=== PATIENT | female | born 1935 | race African-American/Black ===

== ENCOUNTER 2020-11-21 16:11 | Emergency (ER) | payer OTHER ==
--- NOTE | 2020-11-21 16:55 | RAD REPORT ---
EXAM DESCRIPTION: Carlos Single View11/21/2020 4:39 pm CLINICAL HISTORY: Cough COMPARISON: none FINDINGS: Mild bilateral pulmonary opacities. Heart is mildly enlarged. IMPRESSION: Mild bilateral pulmonary opacities represent pulmonary edema or pneumonia
[2020-11-21] MEDS ORDERED: CEFTRIAXONE/SWI 1gm 1 GM/10 ML SYR ONE (16:58)
[2020-11-21] MEDS ORDERED: ACETAMINOPHEN 325 MG TABLET ONE (16:58)
[2020-11-21 17:03] LABS: Basophils % 0.3 % (0-1.3); Hematocrit 40.5 % (36.0-45.0); Lymphocytes % 28.5 % (15.3-44.8); MPV 9.9 fL (7.6-11.3); RBC Red Blood Cell Count 4.63 M/uL (3.86-4.86)
[2020-11-21] MEDS ORDERED: NA CHLORIDE 0.9% 500 ML ONE (17:06)
[2020-11-21] MEDS ORDERED: dexAMETHasone 10 MG/ML VIAL ONE (17:06)
[2020-11-21 17:28] LABS: Albumin 3.1 g/dL (3.4-5.0); Bilirubin Direct 0.2 mg/dL (0-0.2); Bilirubin Total 0.4 mg/dL (0.2-1.0); Magnesium 1.9 mg/dL (1.8-2.4); Potassium 3.9 mmol/L (3.5-5.1); Protein, Total 8.1 g/dL (6.4-8.2); Troponin (Emerg Dept Use Only) 0.03 ng/mL (0.0-0.045)
--- NOTE | 2020-11-21 18:33 | RAD REPORT ---
EXAM DESCRIPTION: CT - Chest For Pe Angio - 11/21/2020 6:08 pm CLINICAL HISTORY: Shortness of breath COMPARISON: November 21, 2020 chest x-ray TECHNIQUE: Dynamically enhanced axial 3 mm thick images of the chest were obtained during administra tion of <100> mL Isovue 370 IV contrast. Coronal and oblique reconstruction images were generated and reviewed. Exam utilizes a protocol for optimal evaluation of pulmonary arterial tree. Maximum intensity projections 3D imaging was utilized All CT scans are performed using dose optimization technique as appropriate and may include automated exposure control or mA/KV adjustment according to patient size. FINDINGS: A pulmonary embolus is not seen. A thoracic aortic aneurysm is not noted. A pleural effusion is not seen. A pericardial effusion is not seen. Mild to moderate ground-glass opacities lower lobes IMPRESSION: Negative for a pulmonary embolism. Mild to moderate ground-glass opacity lower lobes of the lungs can be seen with Covid pneumonia
[2020-11-21] MEDS ORDERED: CASIRIVIMAB/IMDEVIMAB 10 ML VIAL ONE (20:43)
[2020-11-21] MEDS ORDERED: NA CHLORIDE 0.9% 50 ML ONE (20:45)
[2020-11-21] MEDS ORDERED: NA CHLORIDE 0.9% 250 ML ONE (20:45)
--- NOTE | 2020-11-21 21:16 | EDPHYS ---
Physician Documentation [facility] Name: Kaylyn Doty Age: 85 yrs Sex: Female : 1935 Arrival Date: 11/21/2020 Time: 16:14 Bed 6 Private MD: ED Physician Arturo Schuster HPI: 11/21 16:47 This 85 yrs old Black Female presents to ER via EMS with complaints of SOB, Fever. jmm 16:47 The patient or guardian reports cough. Onset: The symptoms/episode began/occurred jmm gradually, 1 week(s) ago. Modifying factors: The symptoms are alleviated by nothing. the symptoms are aggravated by nothing. Associated signs and symptoms: Pertinent positives: fever. An 85-year-old female with no chronic medical disease presents emerge department with complaints of cough, shortness of breath beginning approximately 1 week ago. Patient was positive for coronavirus. . Historical: - Allergies: 16:20 No Known Allergies; aa5 - Home Meds: 16:20 None [Active]; aa5 - PMHx: 16:20 Arthritis; aa5 - Immunization history:: Client reports having NOT received the Covid vaccine. Flu vaccine is not up to date. - Social history:: Smoking status: Patient denies any tobacco usage or history of. ROS: 16:47 Constitutional: Positive for body aches, fever. jmm 16:47 Respiratory: Positive for cough, shortness of breath. 16:47 All other systems are negative. Exam: 16:47 Constitutional: This is a well developed, well nourished patient who is awake, alert, jmm and in no acute distress. Head/Face: atraumatic. Eyes: EOMI, no conjunctival erythema appreciated ENT: Moist Mucus Membranes Neck: Trachea midline, Supple Chest/axilla: Normal chest wall appearance and motion. 16:47 Respiratory: Normal respirations, no respiratory distress appreciated Abdomen/GI: Non distended, soft Back: Normal ROM Skin: General appearance color normal MS/ Extremity: Moves all extremities, no obvious deformities appreciated, no edema noted to the lower extremities Neuro: Awake and alert, normal gait Psych: Behavior is normal, Mood is normal, Patient is cooperative and pleasant 16:47 Cardiovascular: Rate: tachycardic, Rhythm: regular. Vital Signs: 16:19 BP 136 / 91; Pulse 136; Resp 32; Temp 101; Pulse Ox 91% on R/A; Pain 5/10; hb 17:30 BP 123 / 70; Pulse 119; Resp 22 S; Temp 100.9(TE); Pulse Ox 97% on 2 lpm NC; aa5 18:30 BP 121 / 73; Pulse 112; Resp 22; Temp 99.3(O); Pulse Ox 100% on 2 lpm NC; aa5 21:34 BP 118 / 74; Pulse 18; Resp 18; Temp 98.4; Pulse Ox 98% on R/A; Pain 0/10; ms4 MDM: 16:28 Patient medically screened. abi 21:14 Data reviewed: vital signs, nurses notes. Counseling: I had a detailed discussion with brittaney the patient and/or guardian regarding: the historical points, exam findings, and any diagnostic results supporting the discharge/admit diagnosis, lab results, radiology results, the need for outpatient follow up, to return to the emergency department if symptoms worsen or persist or if there are any questions or concerns that arise at home. ED course: Patient states feeling much better. Oxygen saturation is 98 to 100% now without oxygen. Patient was given the opportunity to take monoclonal antibodies and declined. Patient and family were otherwise given strict return precautions. They understand and agree with care.. 11/21 16:19 Order name: Basic Metabolic Panel; Complete Time: 17:34 hb 11/21 16:19 Order name: CBC with Diff; Complete Time: 17:21 hb 11/21 16:19 Order name: LFT's; Complete Time: 17:34 hb 11/21 16:19 Order name: Magnesium; Complete Time: 17:34 hb 11/21 16:19 Order name: NT PRO-BNP; Complete Time: 17:34 hb 11/21 16:19 Order name: PT-INR; Complete Time: 17:24 hb 11/21 16:19 Order name: Troponin (emerg Dept Use Only); Complete Time: 17:34 hb 11/21 16:19 Order name: Lactate; Complete Time: 21:26 hb 11/21 16:19 Order name: Blood Culture Adult (2) hb 11/21 16:30 Order name: Glucose, Ancillary Testing; Complete Time: 16:34 EDMS 11/21 18:40 Order name: SARS-COV-2 RT PCR; Complete Time: 18:47 EDMS 11/21 19:22 Order name: CRP; Complete Time: 20:05 vt1 11/21 16:19 Order name: XRAY Chest (1 view); Complete Time: 16:57 11/21 16:19 Order name: EKG; Complete Time: 16:20 11/21 16:19 Order name: Cardiac monitoring; Complete Time: 16:19 11/21 16:19 Order name: EKG - Nurse/Tech; Complete Time: 16:19 11/21 16:19 Order name: IV Saline Lock; Complete Time: 16:21 11/21 16:19 Order name: Labs collected and sent; Complete Time: 16:26 11/21 16:19 Order name: O2 Per Protocol; Complete Time: 16:19 11/21 16:19 Order name: O2 Sat Monitoring; Complete Time: 16:19 11/21 17:34 Order name: CT Chest For PE Angio; Complete Time: 18:47 [facility] 11/21 19:22 Order name: Procalcitonin; Complete Time: 20:30 [facility] 11/21 19:53 Order name: Vital Signs; Complete Time: 21:35 [facility] Administered Medications: 16:35 Drug: Rocephin (cefTRIAXone) 1 grams Route: IV; Rate: calculated rate; Site: right aa5 forearm; 16:35 Drug: Tylenol 650 mg Route: PO; aa5 16:46 Drug: Decadron - Dexamethasone 10 mg Route: IVP; Site: right forearm; aa5 16:46 Drug: NS 0.9% 500 ml Route: IV; Rate: bolus; Site: right forearm; aa5 Disposition: 11/22 09:22 Co-signature as Attending Physician, Arturo Schuster MD I agree with the assessment and abi plan of care. Disposition Summary: 11/21/20 21:15 Discharge Ordered Location: Home [facility] Condition: Stable [facility] Diagnosis - Coronavirus infection, unspecified [facility] Followup: [facility] - With: Private Physician - When: 2 - 3 days - Reason: Recheck today's complaints, Continuance of care, Re-evaluation by your physician Discharge Instructions: - Discharge Summary Sheet [facility] - COVID-19 [facility] Forms: - Medication Reconciliation Form [facility] - Thank You Letter [facility] - Antibiotic Education [facility] - Prescription Opioid Use [facility] Prescriptions: - ivermectin 3 mg Oral tablet - take 6 tablet by ORAL route as directed Please take 6 tabs by mouth today and [facility] another 6 tabs by mouth on day 3; 12 tablet; Refills: 0, Product Selection Permitted - Prednisone 20 mg Oral Tablet - take 3 tablets by ORAL route once daily for 5 days; 15 tablet; Refills: 0, [facility] Product Selection Permitted - Zithromax Z-Manish 250 mg Oral Tablet - take 1 tablet by ORAL route as directed for 5 days Day 1 - take two (2) tablets [facility] one time. Day 2, 3, 4 , 5 take one (1) tablet once daily.; 6 tablet; Refills: 0, Product Selection Permitted Signatures: Dispatcher [employer] Arturo Alva MD MD cha Mickail, Joel, PA PA jmm Calderon, Audri, RN RN aa5 Melonie Alcantara RN RN Corrections: (The following items were deleted from the chart) 11/21 17:19 16:26 CORONAVIRUS+MR.LAB.BRZ ordered. [facility]
--- NOTE | 2020-11-21 21:16 | ER ---
Nurse's Notes [facility] Name: Kaylyn Doty Age: 85 yrs Sex: Female : 1935 Arrival Date: 11/21/2020 Time: 16:14 Bed 6 Private MD: Diagnosis: Coronavirus infection, unspecified Presentation: 11/21 16:19 Chief complaint: EMS states: SOB, fever, and cough x 1 week ago. Family and pt recently hb tested COVID + on home test kit. EMS reports O2 sat upon arrival was 85% RA and increased to 95 % via 4 L NC, HR 130-140bpm. Pt also reports diarrhea x 2-3 days ago. Denies nausea/vomiting. Coronavirus screen: Client presents with at least one sign or symptom that may indicate coronavirus-19. Ebola Screen: No symptoms or risks identified at this time. Initial Sepsis Screen: Does the patient meet any 2 criteria? RR > 20 per min. Temp <36.0*C (96.8*F)) or > 38.3*C (100.9*F). HR > 90 bpm. Yes Does the patient have a suspected source of infection? Yes:. Risk Assessment: Do you want to hurt yourself or someone else? Patient reports no desire to harm self or others. Onset of symptoms was November 18, 2020. 16:19 Acuity: JUDITH 2 hb 16:19 Method Of Arrival: EMS: [facility] hb Historical: - Allergies: 16:20 No Known Allergies; aa5 - Home Meds: 16:20 None [Active]; aa5 - PMHx: 16:20 Arthritis; aa5 - Immunization history:: Client reports having NOT received the Covid vaccine. Flu vaccine is not up to date. - Social history:: Smoking status: Patient denies any tobacco usage or history of. Screenin:30 Abuse screen: Denies threats or abuse. Nutritional screening: No deficits noted. aa5 Tuberculosis screening: No symptoms or risk factors identified. Fall Risk IV access (20 points). Total Black Fall Scale indicates No Risk (0-24 pts). Assessment: 16:20 General: Appears distressed, ill, Behavior is calm, cooperative. Pain: Pain currently hb is 5 out of 10 on a pain scale. Neuro: Level of Consciousness is obeys commands, lethargic, Oriented to person, place, situation. Cardiovascular: Patient's skin is warm and dry. Rhythm is sinus tachycardia. Respiratory: Reports shortness of breath cough that is Respiratory effort is labored, Respiratory pattern is tachypnea. GI: Reports nausea. : No signs and/or symptoms were reported regarding the genitourinary system. EENT: No signs and/or symptoms were reported regarding the EENT system. Derm: Skin is pink, warm \T\ dry. Musculoskeletal: Reports pain all over. 17:30 Reassessment: No changes from previously documented assessment. Patient and/or family hb updated on plan of care and expected duration. Pain level reassessed. 18:30 Reassessment: Patient states feeling better. Neuro: Level of Consciousness is awake, aa5 alert, obeys commands, Oriented to person, place, situation. Respiratory: Airway is patent Respiratory effort is even, unlabored, Respiratory pattern is regular, symmetrical. Derm: Skin is dry, Skin is normal, Skin temperature is warm. 18:30 Reassessment: Call salazar remains within reach . aa5 Vital Signs: 16:19 BP 136 / 91; Pulse 136; Resp 32; Temp 101; Pulse Ox 91% on R/A; Pain 5/10; hb 17:30 BP 123 / 70; Pulse 119; Resp 22 S; Temp 100.9(TE); Pulse Ox 97% on 2 lpm NC; aa5 18:30 BP 121 / 73; Pulse 112; Resp 22; Temp 99.3(O); Pulse Ox 100% on 2 lpm NC; aa5 21:34 BP 118 / 74; Pulse 18; Resp 18; Temp 98.4; Pulse Ox 98% on R/A; Pain 0/10; ms4 ED Course: 16:14 Patient arrived in ED. iw 16:20 First set of blood cultures drawn by ED staff. aa5 16:21 Triage completed. hb 16:21 Inserted saline lock: 20 gauge in right forearm, using aseptic technique. Blood hb collected. 16:21 Initial lab(s) drawn, by ED staff, sent to lab. aa5 16:24 Arm band placed on. hb 16:24 Patient has correct armband on for positive identification. Placed in gown. Bed in low aa5 position. Call light in reach. Side rails up X2. potline monitor on. Pulse ox on. NIBP on. 16:26 Shane Hinson PA is PHCP. [facility] 16:26 Arturo Schuster MD is Attending Physician. [facility] 16:30 Second set of blood cultures drawn by ED staff. aa5 16:39 XRAY Chest (1 view) In Process Unspecified. EDMS 18:08 CT Chest For PE Angio In Process Unspecified. EDMS 21:34 No provider procedures requiring assistance completed. IV discontinued, intact, ms4 bleeding controlled. Administered Medications: 16:35 Drug: Rocephin (cefTRIAXone) 1 grams Route: IV; Rate: calculated rate; Site: right aa5 forearm; 16:35 Drug: Tylenol 650 mg Route: PO; aa5 16:46 Drug: Decadron - Dexamethasone 10 mg Route: IVP; Site: right forearm; aa5 16:46 Drug: NS 0.9% 500 ml Route: IV; Rate: bolus; Site: right forearm; aa5 Outcome: 21:15 Discharge ordered by MD. [facility] 21:34 Discharged to home ms4 21:34 Condition: stable 21:34 Discharge instructions given to patient, Instructed on discharge instructions, follow up and referral plans. Demonstrated understanding of instructions, follow-up care, Prescriptions given X 3. 21:35 Patient left the ED. ms4 Signatures: Dispatcher [employer] EDND Shane Hisnon PA PA [facility] Carol Trinidad, JOSE C WOODALL Anna Carvalho RN RN aa5 Melonie Alcantara RN RN Ariane Small RN RN ms4 Corrections: (The following items were deleted from the chart) 16:48 16:19 Initial Sepsis Screen: Does the patient meet any 2 criteria? Yes Does the patient aa5 have a suspected source of infection? Yes: hb 16:48 16:19 Chief complaint: EMS states: SOB, fever, and cough x 3 days. Family and pt aa5 recently tested COVID + on home test kit. hb 17:33 17:30 Pulse 119bpm; Resp 22bpm; Spontaneous; Pulse Ox 97% 2 lpm Nasal Cannula; Temp aa5 100.9F Temporal; aa5 18:35 16:45 Anna Carvalho, JOSE C is Primary Nurse. aa5 aa5 18:38 18:30 BP 121 / 73; Pulse 112bpm; Resp 22bpm; Pulse Ox 100% 2 lpm Nasal Cannula; aa5 aa5
[2020-11-21 21:46] VITALS: BP 118/74; TEMP 98.4; O2SAT 98
--- NOTE | 2020-11-22 10:41 | EKG ---
Test Date: 2020-11-21 Test Time: 16:13:36 Hand Edger: BILLIE MEASUREMENT RESULTS: Intervals: Rate: 130 NE: 146 QRSD: 68 QT: 308 QTc: 453 Grady: P: 64 NE: 146 QRS: -25 T: 46 INTERPRETIVE STATEMENTS: Sinus tachycardia Possible Left atrial enlargement Septal infarct, age undetermined Abnormal ECG No previous ECG available for comparison Electronically Signed On 11-22-20 10:39:49 CDT by Regis Bardales
== END 2020-11-21 21:35 | disposition home or self-care (01) ==
LOC: ER 16:11
DX: U07.1 COVID-19 (principal)
CPT/HCPCS: 93005; 87040 ×2; 85025; 80048; 36415; 83735; 85610; 82947; 80076; 83605; 84484; 84145; 83880; 86140; 71275; 71045; 96375; 96374; 99285; U0003; Q9967; J1100; J0696; J7050; J7040

== ENCOUNTER 2020-11-24 13:17 | Inpatient (IN) | payer OTHER ==
[2020-11-24] MEDS ORDERED: NA CHLORIDE 0.9% 500 ML ONE (14:15)
[2020-11-24 14:22] LABS: Absolute Lymphocytes (CBC) 1.1 K/uL (0.7-4.9); Basophils % 0.5 % (0-1.3); Hematocrit 43.5 % (36.0-45.0); Lymphocytes % 19.5 % (15.3-44.8); MPV 9.8 fL (7.6-11.3); RBC Red Blood Cell Count 4.91 M/uL (3.86-4.86)
[2020-11-24 14:42] LABS: Albumin 2.9 g/dL (3.4-5.0); Bilirubin Direct 0.2 mg/dL (0-0.2); Bilirubin Total 0.5 mg/dL (0.2-1.0); C-Reactive Protein 63.2 mg/L (<3.00); Ferritin 695.7 ng/mL (8-388); Potassium 3.5 mmol/L (3.5-5.1); Protein, Total 7.8 g/dL (6.4-8.2); Troponin (Emerg Dept Use Only) 0.02 ng/mL (0.0-0.045)
[2020-11-24 14:44] LABS: Protime INR 1.08
--- NOTE | 2020-11-24 15:22 | RAD REPORT ---
EXAM DESCRIPTION: RAD - Chest Single View - 11/24/2020 3:04 pm CLINICAL HISTORY: COVID +;Cough;Dyspnea COMPARISON: Chest Single View dated 11/21/2020; Chest For Pe Angio dated 11/21/2020 FINDINGS: Basilar airspace disease similar to 11/21/2020. Cardiomegaly.No acute osseous abnormality. Small effusions difficult to exclude. IMPRESSION: Mild basilar opacities similar to 11/21/2020 likely reflecting pneumonia.
--- NOTE | 2020-11-24 15:24 | RAD REPORT ---
EXAM DESCRIPTION: CT - Chest For Pe Angio - 11/24/2020 3:07 pm CLINICAL HISTORY: DYSPNEA COMPARISON: Chest For Pe Angio dated 11/21/2020 FINDINGS: Chest Wall: No suspicious thyroid nodules or pathologic lymphadenopathy. Lungs: Both ground-glass and consolidative airspace disease is present in the lower lungs. The appear ance is similar to 11/21/2020. Pleura: No significant effusions or pneumothorax. Mediastinum/eligio: No pathologic lymphadenopathy. Pulmonary arteries/Aorta: No filling defect identified. No aortic aneurysm. Heart: No significant pericardial effusion. Normal heart size. Cardiomegaly. Upper abdomen: No acute abnormality. Bones: No acute abnormality. Advanced degenerative changes are present in the shoulders. IMPRESSION: Negative for pulmonary embolism. Basilar ground-glass and consolidative airspace disease consistent with pneumonia which is similar to 11/21/2020.
--- NOTE | 2020-11-24 15:42 | EDPHYS ---
Physician Documentation [facility] Name: Kaylyn Doty Age: 85 yrs Sex: Female : 1935 Arrival Date: 11/24/2020 Time: 13:21 Bed 27 Private MD: ED Physician Edwin Mckeon HPI: 11/24 13:23 This 85 yrs old Black Female presents to ER via Unassigned with complaints of Shortness rn of breath. 13:23 The patient has shortness of breath at rest, with light activity. Onset: The rn symptoms/episode began/occurred 1 week(s) ago. Duration: The symptoms are continuous. The patient's shortness of breath is aggravated by exertion, light activity, talking, is alleviated by rest, application of supplemental oxygen. Associated signs and symptoms: Pertinent positives: non-productive cough, Pertinent negatives: fever, hemoptysis, loss of consciousness. Severity of symptoms: At their worst the symptoms were moderate in the emergency department the symptoms are unchanged. The patient has not experienced similar symptoms in the past. The patient has been recently seen by a physician:. Patient states sick for about 10 days now, positive Covid, reports increased shortness of breath that began this morning. Denies chronic respiratory issues or heart problems prior to this. EMS states oxygen saturation 79%. Patient denies chest pain. Historical: - Allergies: 13:34 No Known Allergies; ld1 - Home Meds: 13:34 None [Active]; ld1 - PMHx: 13:34 Arthritis; ld1 - Immunization history:: Adult Immunizations up to date, Client reports having NOT received the Covid vaccine. - Social history:: Smoking status: Patient denies any tobacco usage or history of. - Family history:: not pertinent. - Hospitalizations: : No recent hospitalization is reported. ROS: 13:23 Constitutional: Negative for fever, chills, and weight loss, Eyes: Negative for injury, rn pain, redness, and discharge, ENT: Negative for injury, pain, and discharge, Neck: Negative for injury, pain, and swelling, Cardiovascular: Negative for chest pain, palpitations, and edema, Respiratory: Negative for wheezing, and pleuritic chest pain Abdomen/GI: Negative for abdominal pain, nausea, vomiting, diarrhea, and constipation, Back: Negative for injury and pain, : Negative for injury, bleeding, discharge, and swelling, MS/Extremity: Negative for injury and deformity, Skin: Negative for injury, rash, and discoloration, Neuro: Negative for headache, numbness, tingling, and seizure. 13:23 All other systems are negative. Exam: 13:23 Constitutional: This is a well developed, well nourished patient who is awake, alert, rn mild tachypnea Head/Face: Normocephalic, atraumatic. Eyes: Periorbital areas with no swelling, redness, or edema. ENT: No stridor Cardiovascular: Tachycardic, regular. No pulse deficits. Respiratory: Mild tachypnea, no retractions Abdomen/GI: Soft, non-tender Skin: Warm, dry MS/ Extremity: Pulses equal, no cyanosis. Neuro: Awake and alert, GCS 15 18:37 ECG was reviewed by the Attending Physician. rn Vital Signs: 13:32 Pulse 103; Resp 26; Temp 98.9(O); Pulse Ox 96% on 3 lpm NC; Weight 65.77 kg; Height 5 ld1 ft. 4 in. (162.56 cm); Pain 0/10; 13:39 BP 117 / 78; ld1 14:44 BP 121 / 77; Pulse 99; Resp 30; Pulse Ox 97% on 3 lpm NC; ld1 13:32 Body Mass Index 24.89 (65.77 kg, 162.56 cm) ld1 MDM: 13:21 Patient medically screened. rn 15:39 Differential diagnosis: Myocardial Infarction pneumonia, Pneumothorax pulmonary edema, rn Pulmonary Embolism reactive airway disease, Sepsis. Data reviewed: vital signs, nurses notes, lab test result(s), EKG, radiologic studies, CT scan, and as a result, I will admit patient. Data interpreted: site monitor: rate is 99 beats/min, rhythm is normal sinus rhythm, regular, with no ectopy, Interpretation: normal rate, normal rhythm, Pulse oximetry: on room air is 79 %. Interpretation: hypoxia. Plan: O2 by NC applied. Test interpretation: by ED physician or midlevel provider: ECG, plain radiologic studies, CXR with bilateral interstitial infiltrate. Counseling: I had a detailed discussion with the patient and/or guardian regarding: the historical points, exam findings, and any diagnostic results supporting the discharge/admit diagnosis, lab results, radiology results, the need for further work-up and treatment in the hospital. Response to treatment: the patient's symptoms have mildly improved after treatment, and as a result, I will admit patient. Admission orders: after a detailed discussion of the patient's condition and case, the admit orders are written by me. 11/24 13:38 Order name: BMP 11/24 13:38 Order name: Blood Culture Adult (2) 11/24 13:38 Order name: C-Reactive Protein 11/24 13:38 Order name: CBC with Diff; Complete Time: 14:48 11/24 13:38 Order name: D-Dimer; Complete Time: 15:13 11/24 13:38 Order name: Ferritin; Complete Time: 14:48 11/24 13:38 Order name: LFT's; Complete Time: 14:48 11/24 13:38 Order name: Lactate; Complete Time: 14:48 11/24 13:38 Order name: PT-INR; Complete Time: 15:13 11/24 13:38 Order name: Procalcitonin; Complete Time: 15:13 11/24 13:38 Order name: Ptt, Activated; Complete Time: 15:13 11/24 13:38 Order name: Troponin (emerg Dept Use Only); Complete Time: 14:48 11/24 13:39 Order name: Basic Metabolic Panel; Complete Time: 14:48 [facility] 11/24 13:39 Order name: Blood Culture [facility] 11/24 13:38 Order name: CXR XRAY; Complete Time: 15:37 11/24 13:38 Order name: EKG; Complete Time: 13:39 11/24 13:39 Order name: C-Reactive Protein; Complete Time: 14:48 [facility] 11/24 14:49 Order name: CT Chest For PE Angio; Complete Time: 15:37 11/24 16:58 Order name: CONS Physician Consult [facility] 11/24 17:08 Order name: T4 Free [facility] 11/24 17:08 Order name: Heart Healthy [facility] 11/24 17:08 Order name: Thyroid Stimulating Hormone [facility] 11/24 17:20 Order name: Respiratory Therapy Consult [facility] 11/24 17:21 Order name: Lipid Profile [facility] 11/24 17:21 Order name: Urinalysis [facility] 11/24 17:21 Order name: Basic Metabolic Panel EDMS 11/24 17:21 Order name: Basic Metabolic Panel EDMS 11/24 17:21 Order name: CBC with Automated Diff EDMS 11/24 17:21 Order name: CBC with Automated Diff EDMS 11/24 13:38 Order name: Cardiac monitoring; Complete Time: 13:40 rn 11/24 13:38 Order name: Droplet/Contact Precautions; Complete Time: 13:40 rn 11/24 13:38 Order name: EKG - Nurse/Tech; Complete Time: 14:08 rn 11/24 13:38 Order name: IV Start; Complete Time: 14:08 rn 11/24 13:38 Order name: Labs collected and sent; Complete Time: 14:08 rn 11/24 13:38 Order name: O2 Per Protocol; Complete Time: 13:40 rn 11/24 13:38 Order name: O2 Sat Monitoring; Complete Time: 13:40 rn EC:37 Rate is 105 beats/min. Rhythm is regular. QRS [place] is Normal. CT interval is normal. rn QRS interval is normal. QT interval is normal. No Q waves. T waves are Normal. No ST changes noted. Clinical impression: Sinus tachycardia. Interpreted by me. Reviewed by me. Administered Medications: 14:08 Drug: NS 0.9% 500 ml Route: IV; Rate: bolus; Site: right antecubital; ld1 15:30 Follow up: Response: No adverse reaction; IV Status: Completed infusion; IV Intake: ld1 500ml Disposition Summary: 11/24/20 15:41 Hospitalization Ordered Hospitalization Status: Inpatient Admission rn Provider: Shay Mane rn Condition: Stable rn Problem: new rn Symptoms: have improved rn Bed/Room Type: Standard rn Location: Telemetry/MedSurg (Inpatient)(11/25/20 18:37) bd Room Assignment: 403(11/25/20 18:37) bd Diagnosis - Pneumonia due to SARS-associated coronavirus rn - Hypoxemia rn Forms: - Medication Reconciliation Form rn - SBAR form rn Signatures: Dispatcher [employer] Rosemary Cox Roman, MD MD rn Garcia, Cindy, RN RN cg Dibbern, Lauren, RN RN ld1 Corrections: (The following items were deleted from the chart) 11/25 02:11/24 15:41 Telemetry/MedSurg (Inpatient) [facility] 11/25 02:11/24 15:41 [facility] 11/25 18:37 02:09 [facility] bd 18:37 02:09 [facility]- bd
--- NOTE | 2020-11-24 15:42 | ER ---
Nurse's Notes [facility] Name: Kaylyn Doty Age: 85 yrs Sex: Female : 1935 Arrival Date: 11/24/2020 Time: 13:21 Bed 27 Private MD: Diagnosis: Pneumonia due to SARS-associated coronavirus;Hypoxemia Presentation: 11/24 13:32 Chief complaint: EMS states: toned out for shortness of breath. Upon arrival pt was 79% ld1 RA. Covid +. Coronavirus screen: Client reports previous positive COVID test result. Date of collection: November 15, 2020. Ebola Screen: No symptoms or risks identified at this time. Initial Sepsis Screen: Does the patient meet any 2 criteria? No. Patient's initial sepsis screen is negative. Does the patient have a suspected source of infection? No. Patient's initial sepsis screen is negative. Risk Assessment: Do you want to hurt yourself or someone else? Patient reports no desire to harm self or others. Onset of symptoms was November 24, 2020. 13:32 Method Of Arrival: EMS: [facility] ld1 13:32 Acuity: JUDITH 3 ld1 Triage Assessment: 13:34 General: Appears in no apparent distress. comfortable, Behavior is calm, cooperative, ld1 appropriate for age. Pain: Denies pain. EENT: No signs and/or symptoms were reported regarding the EENT system. Neuro: Level of Consciousness is awake, alert, obeys commands, Oriented to person, place, time, situation, Appropriate for age. Cardiovascular: Capillary refill < 3 seconds Patient's skin is warm and dry. Respiratory: Airway is patent Respiratory effort is even, labored, Respiratory pattern is regular, symmetrical. GI: Abdomen is flat, non-distended. : No signs and/or symptoms were reported regarding the genitourinary system. Derm: No signs and/or symptoms reported regarding the dermatologic system. Musculoskeletal: No signs and/or symptoms reported regarding the musculoskeletal system. Historical: - Allergies: 13:34 No Known Allergies; ld1 - Home Meds: 13:34 None [Active]; ld1 - PMHx: 13:34 Arthritis; ld1 - Immunization history:: Adult Immunizations up to date, Client reports having NOT received the Covid vaccine. - Social history:: Smoking status: Patient denies any tobacco usage or history of. - Family history:: not pertinent. - Hospitalizations: : No recent hospitalization is reported. Screenin:38 Abuse screen: Denies threats or abuse. Denies injuries from another. Nutritional ld1 screening: No deficits noted. Tuberculosis screening: No symptoms or risk factors identified. Fall Risk None identified. Assessment: 13:38 Reassessment: See triage assessment. ld1 14:44 Reassessment: Patient appears in no apparent distress at this time. No changes from ld1 previously documented assessment. Patient and/or family updated on plan of care and expected duration. Pain level reassessed. Vital Signs: 13:32 Pulse 103; Resp 26; Temp 98.9(O); Pulse Ox 96% on 3 lpm NC; Weight 65.77 kg; Height 5 ld1 ft. 4 in. (162.56 cm); Pain 0/10; 13:39 BP 117 / 78; ld1 14:44 BP 121 / 77; Pulse 99; Resp 30; Pulse Ox 97% on 3 lpm NC; ld1 13:32 Body Mass Index 24.89 (65.77 kg, 162.56 cm) ld1 ED Course: 13:21 Patient arrived in ED. rn 13:21 Edwin Mckeon MD is Attending Physician. rn 13:31 Loretta Martins, JOSE C is Primary Nurse. ld1 13:34 Triage completed. ld1 13:34 Arm band placed on right wrist. ld1 13:38 Patient has correct armband on for positive identification. Placed in gown. Bed in low ld1 position. Call light in reach. Side rails up X2. panel monitor on. Pulse ox on. NIBP on. Door closed. Warm blanket given. Pillow given. 13:38 No provider procedures requiring assistance completed. ld1 15:04 CXR XRAY In Process Unspecified. EDMS 15:06 CT Chest For PE Angio In Process Unspecified. EDMS 15:41 Shay Mane MD is Hospitalizing Provider. rn 11/25 20:45 Patient admitted, IV remains in place. intact. ld1 20:48 bleeding controlled, No redness/swelling at site. ld1 Administered Medications: 11/24 14:08 Drug: NS 0.9% 500 ml Route: IV; Rate: bolus; Site: right antecubital; ld1 15:30 Follow up: Response: No adverse reaction; IV Status: Completed infusion; IV Intake: ld1 500ml Intake: 15:30 IV: 500ml; Total: 500ml. ld1 Outcome: 15:41 Decision to Hospitalize by Provider. jose c 11/25 20:43 Admitted to Med/surg accompanied by tech, via wheelchair, room 403, with oxygen, with ld1 chart, Report called to JOSE C Stevens Condition: stable Instructed on the need for admit. 20:48 Patient left the ED. ld1 Signatures: Dispatcher [employer] EDEdwin Guerrero MD MD rn Loretta Martins RN RN ld1
[2020-11-24] MEDS ORDERED: LABETALOL 20 MG/4ML SYRINGE IV PRN (17:04)
[2020-11-24] MEDS ORDERED: ACETAMINOPHEN 500 MG TAB PO PRN (17:05)
[2020-11-24] MEDS ORDERED: ONDANSETRON 4 MG/2 ML VIAL IV PRN (17:05)
[2020-11-24] MEDS ORDERED: TRAMADOL HCL 50 MG TAB PO PRN (17:09)
[2020-11-24] MEDS ORDERED: HYDROCODONE/APAP 5/325 MG TAB PO PRN (17:20)
--- NOTE | 2020-11-24 17:21 | P.HP ---
Certification for Inpatient Patient admitted to: Inpatient With expected LOS: >2 Midnights Patient will require the following post-hospital care: None Practitioner: I am a practitioner with admitting privileges, knowledge of patient current condition, hospital course, and medical plan of care. Services: Services provided to patient in accordance with Admission requirements found in Title 42 Section 412.3 of the Code of Federal Regulations <Jerome Steele - Last Filed: 11/25/20 00:04> Patient History Date of Service: 11/25/20 Reason for admission: SOB History of Present Illness: Patient is an 85-year-old female with a past medical history significant for osteoarthritis who presents with complaint of shortness of breath that has become worse in the last couple of days. Patient reported that she was tested + for COVID-19 infection 4 days ago . Patient reports associated signs and symptoms of cough, diarrhea weakness and fatigue. Patient denies any other signs or symptoms. Symptoms are aggravated or relieved by nothing. Jose Rauliy noted that patient O2 sat was in the 80s per patient report hence family decided to present to the hospital due to worsening symptoms. Home medications list reviewed: No - Past Medical/Surgical History -: OA Past Surgical History: Reviewed- Non-Contributory - Family History Family History: Reviewed- Non-Contributory (Reviewed and patient unsure of family history) - Social History Smoking Status: Never smoker Alcohol use: No CD- Drugs: No Caffeine use: No Place of Residence: Home <Jerome Steele - Last Filed: 11/25/20 00:04> Date of Service: 11/24/20 <Shay Mane - Last Filed: 12/01/20 06:25> Allergies No Known Allergies Allergy (Unverified 11/24/20 15:47) Home Medications: Albuterol Inhaler [Ventolin Inhaler*] 2 puff IH Q6H PRN #1 hfa.aer.ad 11/27/20 Ascorbic Acid [Vitamin C*] 500 mg PO QID #120 tablet 11/27/20 Benzonatate [Tessalon Perle] 200 mg PO TID #60 cap 11/27/20 Cholecalciferol (Vitamin D3) [Vitamin D 5,000 IU Cap*] 5,000 unit PO DAILY #60 cap 11/27/20 Famotidine [Pepcid*] 20 mg PO DAILY #60 tab 11/27/20 Guaifen W/Codeine Syrup [ROBITUSSIN A-C Syrup*] 10 ml PO BID PRN #100 ml 11/27/20 Melatonin 10 mg PO BEDTIME #14 tablet 11/27/20 Thiamine HCl [Vitamin B-1*] 100 mg PO DAILY #30 tablet 11/27/20 Zinc Sulfate [Zinc Sulfate*] 220 mg PO DAILY #30 cap 11/27/20 predniSONE [Deltasone] 20 mg PO BID #20 tab 11/27/20 traMADol HCL [Ultram*] 50 mg PO Q6H PRN #30 tab 11/27/20 Review of Systems General: Weakness, Malaise Eyes: Unremarkable ENT: Unremarkable Respiratory: Cough, Shortness of Breath, SOB with Excertion Cardiovascular: Unremarkable Gastrointestinal: Diarrhea Genitourinary: Unremarkable Musculoskeletal: Unremarkable Neurological: Weakness Lymphatics: Unremarkable <Jerome Steele - Last Filed: 11/25/20 00:04> Physical Examination - Physical Exam General: Alert, In no apparent distress, Oriented x3, Mild distress HEENT: Atraumatic, PERRLA, Mucous membr. moist/pink, EOMI, Sclerae nonicteric Neck: Supple, 2+ carotid pulse no bruit, No LAD, Without JVD or thyroid abnormality Respiratory: Diminished Cardiovascular: Regular rate/rhythm, Normal S1 S2 Capillary refill: <2 Seconds Gastrointestinal: Normal bowel sounds, Soft and benign, No ascites, No tenderness Musculoskeletal: No swelling, No tenderness Integumentary: No rashes Neurological: Normal gait, Normal speech, Normal strength at 5/5 x4 extr, Normal tone, Normal affect Lymphatics: No axilla or inguinal lymphadenopathy External genitalia: Deferred Rectal: Deferred - Studies Laboratory Data (last 24 hrs) 11/24/20 14:00: PT 12.4, INR 1.08, APTT 23.9 L 11/24/20 14:00: WBC 5.80 D, Hgb 14.1, Hct 43.5, Plt Count 197 D 11/24/20 14:00: Sodium 142, Potassium 3.5, BUN 21 H, Creatinine 0.76, Glucose 117 H, Total Bilirubin 0.5, AST 43 H, ALT 35, Alkaline Phosphatase 56 <Jerome Steele E - Last Filed: 11/25/20 00:04> Assessment and Plan - Plan --COVID-19 pneumonia. Engineering Vice President consulted. Patient placed on steroids, oral supplements and O2 therapy. Patient placed on ivermectin per recommendation of golf course designer. Further management per golf course designer. --COVID-19 pneumonia. Continue current treatment regimen. Continue droplet, contact and airborne precautions. --Acute respiratory failure with hypoxia. Continue current treatment regimen. Patient on O2 therapy. Further management per golf course designer. --Severe elevation in D-dimer. CTA PE protocol negative for PE. Continue supportive care and heparin subq. --CKD 2. Stable. We will continue to monitor renal functions. --Osteoarthritis. We will manage pain with current pain medication regimen. --DVT prophylaxis with heparin subQ I have had discussion about advanced directives with the patient and /or family during this hospital admission. Addressed code status and /or goals of care. Spent more than 15 minutes. Case discussed withpatient and nurse. Discharge disposition. Continue hospital stay. Discharge Plan: Home Plan to discharge in: 48 Hours - Advance Directives Does patient have a Living Will: No Does patient have a Durable POA for Healthcare: No - Code Status/Comfort Care Code Status Assessed: Yes Code Status: Full Code Physician Review: Patient Assessed, Agree with Above Assessment and Plan Critical Care: No <Jerome Steele E - Last Filed: 11/25/20 00:04> - Problems (Diagnosis) (1) Pneumonia due to COVID-19 virus Status: Acute (2) Hypoxemia Status: Acute (3) Depression Status: Acute <Shay Mane - Last Filed: 12/01/20 06:25> Date of Service: 11/24/20 Subjective Chart reviewed. Agree with plan of care as mentioned above Review of Systems 10-point ROS is otherwise unremarkable Physical Examination - Vital Signs Reviewed - Physical Exam General: Alert, In no apparent distress, Oriented x3 Respiratory: Diminished Cardiovascular: Regular rate/rhythm, Normal S1 S2 Gastrointestinal: Normal bowel sounds, Soft and benign, Non-distended, No tenderness Musculoskeletal: No clubbing, No swelling, No tenderness Neurological: Sensation intact, Cranial nerves 3-12 intact - Studies Medications List Reviewed: Yes Assessment & Plan - Problems (Diagnosis) (1) Pneumonia due to COVID-19 virus Current Visit: Yes Status: Acute (2) Hypoxemia Current Visit: Yes Status: Acute (3) Depression Current Visit: Yes Status: Acute - Plan Continue with plan of care as mentioned above: 1. Continue with IV steroids 2. Monitor inflammatory markers 3. Repeat chest x-ray 4. O2 per protocol 5. Pulmonary consultation completed 6. Continue with albuterol inhaler therapy; also supportive care 7. GI and DVT prophylaxis <Shay Mane - Last Filed: 12/01/20 06:25>
[2020-11-24] MEDS: IVERMECTIN 3 MG TABLET PO SCH (18:00)
[2020-11-24 18:04] LABS: Thyroid Stimulating Hormone 0.776 uIU/mL (0.360-3.740)
[2020-11-24] MEDS ORDERED: IVERMECTIN 3 MG TABLET PO ONE (19:00)
[2020-11-24] MEDS ORDERED: METHYLPREDNISOLONE 40 MG INJ ONE (20:44)
[2020-11-24] MEDS ORDERED: FAMOTIDINE 20 MG/2 ML VIAL IV ONE (20:44)
[2020-11-24] MEDS ORDERED: ASCORBIC ACID 500 MG TABLET ONE (20:44)
[2020-11-24] MEDS ORDERED: MELATONIN 5 MG TABLET PO ONE (20:44)
[2020-11-24] MEDS: ASCORBIC ACID 500 MG TABLET PO SCH (21:00)
[2020-11-24] MEDS: METHYLPREDNISOLONE 40 MG INJ IV SCH (21:00)
[2020-11-24] MEDS: MELATONIN 5 MG TABLET PO SCH (21:00)
[2020-11-24] MEDS: GUAIFENESIN/CODEINE 5ML UCUP PO PRN (21:01)
[2020-11-24] MEDS ORDERED: GUAIFENESIN/CODEINE 5ML UCUP ONE (21:18)
[2020-11-24] MEDS ORDERED: THIAMINE HCL 100 MG TABLET ONE (22:46)
[2020-11-25] MEDS ORDERED: HEPARIN 5000 UNIT/ML 1 ML VIAL ONE ×3 (02:11→19:04)
[2020-11-25] MEDS: HEPARIN 5000 UNIT/ML 1 ML VIAL SQ SCH ×3 (02:18→17:00)
[2020-11-25] MEDS: GUAIFENESIN/CODEINE 5ML UCUP PO PRN ×2 (02:53→12:58)
[2020-11-25 02:56] LABS: Absolute Lymphocytes (CBC) 0.5 K/uL (0.7-4.9); Basophils % 0.1 % (0-1.3); Hematocrit 37.9 % (36.0-45.0); Lymphocytes % 11.7 % (15.3-44.8); MPV 9.8 fL (7.6-11.3); RBC Red Blood Cell Count 4.32 M/uL (3.86-4.86)
[2020-11-25] MEDS ORDERED: GUAIFENESIN/CODEINE 5ML UCUP ONE ×2 (03:16→13:03)
[2020-11-25 03:25] LABS: BUN Blood Urea Nitrogen 17 mg/dL (7-18); Bicarbonate 28 mmol/L (21-32); Glucose Level 132 mg/dL (74-106); HDL Cholesterol 58 mg/dL (40-60); LDL Cholesterol, Calculated 99 (<130); Potassium 4.1 mmol/L (3.5-5.1); Sodium Level 142 mmol/L (136-145)
--- NOTE | 2020-11-25 07:55 | P.CNS ---
Date of Consult: 11/25/20 Reason for Consult: COVID penumonia Chief Complaint: SOB History of Present Illness: AGe 85 AW COVID penumonia. Pso for COVID. AW resp failure Allergies No Known Allergies Allergy (Unverified 11/24/20 15:47) - Past Medical/Surgical History -: OA - Social History Alcohol use: No CD- Drugs: No Caffeine use: No Place of Residence: Home Review of Systems General: Weakness Respiratory: Shortness of Breath Physical Examination Temp Pulse Resp BP Pulse Ox 98.6 F 78 21 H 113/71 99 11/25/20 04:00 11/25/20 04:00 11/25/20 04:00 11/25/20 04:00 11/25/20 04:00 General: Alert, In no apparent distress, Oriented x3, Cooperative Laboratory Data (last 24 hrs) 11/24/20 14:00: PT 12.4, INR 1.08, APTT 23.9 L 11/24/20 14:00: WBC 5.80 D, Hgb 14.1, Hct 43.5, Plt Count 197 D 11/24/20 14:00: Sodium 142, Potassium 3.5, BUN 21 H, Creatinine 0.76, Glucose 117 H, Total Bilirubin 0.5, AST 43 H, ALT 35, Alkaline Phosphatase 56 - Problems (1) COVID Current Visit: Yes Status: Acute Plan: 85 aw SOB and hypoxemia. Ct and c/xyr not charaterictic for COVID. Check RA pulse OX/DC on Decadron
[2020-11-25] MEDS ORDERED: METHYLPREDNISOLONE 125 MG INJ ONE (08:08)
[2020-11-25] MEDS ORDERED: ASPIRIN EC 81 MG TAB PO ONE (08:09)
[2020-11-25] MEDS ORDERED: THIAMINE HCL 100 MG TABLET ONE (08:09)
[2020-11-25] MEDS ORDERED: ZINC SULFATE 220 MG CAP ONE (08:09)
[2020-11-25] MEDS ORDERED: VITAMIN D 1000 UNIT TAB ONE (08:09)
[2020-11-25] MEDS ORDERED: ASCORBIC ACID 500 MG TABLET ONE ×2 (08:42→19:04)
[2020-11-25] MEDS: THIAMINE HCL 100 MG TABLET PO SCH (09:00)
[2020-11-25] MEDS: ASCORBIC ACID 500 MG TABLET PO SCH ×4 (09:00→21:14)
[2020-11-25] MEDS: VITAMIN D 5,000 UNIT CAP PO SCH (09:00)
[2020-11-25] MEDS: ZINC SULFATE 220 MG CAP PO SCH (09:00)
[2020-11-25] MEDS: FAMOTIDINE 20 MG/2 ML VIAL IV SCH (09:00)
[2020-11-25] MEDS: METHYLPREDNISOLONE 40 MG INJ IV SCH ×2 (09:00→21:13)
[2020-11-25] MEDS: ASPIRIN 81 MG CHEWABLE TABLET PO SCH (09:00)
[2020-11-25] MEDS ORDERED: ONDANSETRON 4 MG/2 ML VIAL ONE (13:00)
[2020-11-25] MEDS ORDERED: ACETAMINOPHEN 500 MG TAB ONE (13:01)
--- NOTE | 2020-11-25 15:39 | EKG ---
Test Date: 2020-11-24 Test Time: 13:52:04 Radio Board Operator Announcer: MAYELA MEASUREMENT RESULTS: Intervals: Rate: 105 NE: 138 QRSD: 76 QT: 352 QTc: 465 [place]: P: 53 NE: 138 QRS: 2 T: 48 INTERPRETIVE STATEMENTS: Sinus tachycardia Otherwise normal ECG Compared to ECG 11/21/2020 16:13:36 Myocardial infarct finding no longer present Electronically Signed On 11-25-20 15:37:09 CDT by Regis Bardales
--- NOTE | 2020-11-25 17:01 | P.PN ---
Subjective Date of Service: 11/25/20 Ms Doty is an 85-year-old female with COVID-19 pneumonia. Had a long discussion with her. She is not really sure exactly when she came down with the infection but her son was sick 1st. He is come off from work and he was not feeling well and apparently a couple days later he was not arousable at home and he ended up passing away. She is not sure if he was infected. She has started feeling poorly a couple days later. Her oxygen saturations have been running low so she came to the emergency room. Currently she is feeling better. Will continue with IV steroids. Her O2 sats are 96% on 2-3 L. Anticipate discharge over the next 24-48 hr if she maintains holding her oxygen saturations at minima l O2 support. Review of Systems 10-point ROS is otherwise unremarkable Physical Examination - Vital Signs Temperature: 98.7 F Blood Pressure: 103/78 Pulse: 91 Respirations: 20 Pulse Ox (%): 100 - Physical Exam General: Alert, In no apparent distress, Oriented x3 Respiratory: Diminished Cardiovascular: Regular rate/rhythm, Normal S1 S2 Gastrointestinal: Normal bowel sounds, Soft and benign, Non-distended, No tenderness Musculoskeletal: No clubbing, No swelling, No tenderness Neurological: Sensation intact, Cranial nerves 3-12 intact - Studies Medications List Reviewed: Yes Assessment & Plan - Problems (Diagnosis) (1) Pneumonia due to COVID-19 virus Current Visit: Yes Status: Acute (2) Hypoxemia Current Visit: Yes Status: Acute (3) Depression Current Visit: Yes Status: Acute - Plan 1. Continue with IV steroids 2. Monitor inflammatory markers 3. Repeat chest x-ray 4. O2 per protocol 5. Pulmonary consultation completed 6. Continue with albuterol inhaler therapy; also supportive care 7. GI and DVT prophylaxis Discharge Plan: Home Plan to discharge in: Greater than 2 days - Advance Directives Does patient have a Living Will: No Does patient have a Durable POA for Healthcare: No - Code Status/Comfort Care Code Status: Full Code Physician Review: Patient Assessed, Agree with Above Assessment and Plan Critical Care: No Time Spent Managing PTS Care (In Minutes): 35
[2020-11-25] MEDS: MELATONIN 5 MG TABLET PO SCH (21:00)
[2020-11-25 21:05] VITALS: BMI 25.4
[2020-11-26] MEDS: HEPARIN 5000 UNIT/ML 1 ML VIAL SQ SCH ×3 (01:27→17:07)
[2020-11-26] MEDS: GUAIFENESIN/CODEINE 5ML UCUP PO PRN ×2 (01:36→20:43)
[2020-11-26 06:31] LABS: Absolute Lymphocytes (CBC) 0.9 K/uL (0.7-4.9); Basophils % 0.9 % (0-1.3); Hematocrit 41.4 % (36.0-45.0); Lymphocytes % 13.9 % (15.3-44.8); MPV 9.2 fL (7.6-11.3); RBC Red Blood Cell Count 4.65 M/uL (3.86-4.86)
[2020-11-26 07:40] LABS: Albumin 2.3 g/dL (3.4-5.0); Bilirubin Total 0.4 mg/dL (0.2-1.0); C-Reactive Protein 32.3 mg/L (<3.00); Ferritin 567.6 ng/mL (8-388); Magnesium 2.3 mg/dL (1.8-2.4); Potassium 4.1 mmol/L (3.5-5.1); Protein, Total 6.6 g/dL (6.4-8.2)
[2020-11-26] MEDS: ASPIRIN 81 MG CHEWABLE TABLET PO SCH (08:20)
[2020-11-26] MEDS: THIAMINE HCL 100 MG TABLET PO SCH (08:20)
[2020-11-26] MEDS: FAMOTIDINE 20 MG/2 ML VIAL IV SCH (08:21)
[2020-11-26] MEDS: VITAMIN D 5,000 UNIT CAP PO SCH (08:21)
[2020-11-26] MEDS: ZINC SULFATE 220 MG CAP PO SCH (08:21)
[2020-11-26] MEDS: ASCORBIC ACID 500 MG TABLET PO SCH ×4 (08:21→20:34)
[2020-11-26] MEDS: METHYLPREDNISOLONE 40 MG INJ IV SCH ×2 (08:22→20:34)
--- NOTE | 2020-11-26 09:07 | RAD REPORT ---
EXAM DESCRIPTION: RAD - Chest Single View - 11/26/2020 5:15 am CLINICAL HISTORY: pneumonia Chest pain. COMPARISON: Chest Single View dated 11/24/2020; Chest Single View dated 11/21/2020; Chest For Pe Angio dated 11/24/2020 FINDINGS: Portable technique limits examination quality. Mild bilateral pulmonary opacities are again seen appearing essentially unchanged. The heart is mildl y prominent size. Advanced degenerative changes are present in both shoulders. IMPRESSION: Stable chest since comparative study.
[2020-11-26] MEDS: IVERMECTIN 3 MG TABLET PO SCH (17:07)
[2020-11-26] MEDS: MELATONIN 5 MG TABLET PO SCH (20:34)
[2020-11-27] MEDS: HEPARIN 5000 UNIT/ML 1 ML VIAL SQ SCH ×3 (00:16→17:24)
[2020-11-27 05:42] LABS: Urine Appearance CLEAR (Clear); Urine Bilirubin NEGATIVE (Negative); Urine Blood NEGATIVE (Negative); Urine Color YELLOW (Yellow); Urine Glucose NEGATIVE (Negative); Urine Protein TRACE (Negative); Urine Urobilinogen 0.2 mg/dL (0.2-1.0)
[2020-11-27 05:51] LABS: Urine Microscopic Reflex ORDER UMIC
[2020-11-27 06:14] LABS: Urine Bacteria 20-50 /HPF (<20); Urine Mucus 1+ /HPF (NONE SEEN); Urine RBC <5 /HPF (NONE SEEN)
[2020-11-27 06:18] LABS: Absolute Lymphocytes (CBC) 0.8 K/uL (0.7-4.9); Basophils % 1.4 % (0-1.3); Lymphocytes % 11.1 % (15.3-44.8); MPV 9.2 fL (7.6-11.3); RBC Red Blood Cell Count 4.51 M/uL (3.86-4.86)
[2020-11-27 06:55] LABS: ALT/SGPT 29 U/L (12-78); AST/SGOT 22 U/L (15-37); Albumin 2.4 g/dL (3.4-5.0); Alkaline Phosphatase 52 U/L (45-117); BUN Blood Urea Nitrogen 26 mg/dL (7-18); Bicarbonate 29 mmol/L (21-32); Bilirubin Total 0.4 mg/dL (0.2-1.0); Ferritin 524.4 ng/mL (8-388); Glucose Level 146 mg/dL (74-106); Potassium 4.3 mmol/L (3.5-5.1); Protein, Total 6.5 g/dL (6.4-8.2); Sodium Level 139 mmol/L (136-145)
[2020-11-27] MEDS ORDERED: FAMOTIDINE 20 MG TAB PO SCH (09:00)
[2020-11-27] MEDS: ZINC SULFATE 220 MG CAP PO SCH (09:22)
[2020-11-27] MEDS: ASCORBIC ACID 500 MG TABLET PO SCH ×3 (09:22→17:24)
[2020-11-27] MEDS: ASPIRIN 81 MG CHEWABLE TABLET PO SCH (09:22)
[2020-11-27] MEDS: VITAMIN D 5,000 UNIT CAP PO SCH (09:23)
[2020-11-27] MEDS: METHYLPREDNISOLONE 40 MG INJ IV SCH (09:23)
[2020-11-27] MEDS: THIAMINE HCL 100 MG TABLET PO SCH (09:23)
[2020-11-27 16:53] VITALS: BP 99/65; TEMP 98.4
[2020-11-27 18:29] VITALS: O2SAT 95
--- NOTE | 2020-12-01 06:24 | P.PN ---
Date of Service: 11/26/20 Subjective Chart reviewed. Agree with plan of care as mentioned above Review of Systems 10-point ROS is otherwise unremarkable Physical Examination - Vital Signs Reviewed - Physical Exam General: Alert, In no apparent distress, Oriented x3 Respiratory: Diminished Cardiovascular: Regular rate/rhythm, Normal S1 S2 Gastrointestinal: Normal bowel sounds, Soft and benign, Non-distended, No tenderness Musculoskeletal: No clubbing, No swelling, No tenderness Neurological: Sensation intact, Cranial nerves 3-12 intact - Studies Medications List Reviewed: Yes Assessment & Plan - Problems (Diagnosis) (1) Pneumonia due to COVID-19 virus Current Visit: Yes Status: Acute (2) Hypoxemia Current Visit: Yes Status: Acute (3) Depression Current Visit: Yes Status: Acute - Plan Continue with plan of care as mentioned above: 1. Continue with IV steroids 2. Monitor inflammatory markers 3. Repeat chest x-ray 4. O2 per protocol 5. Pulmonary consultation completed 6. Continue with albuterol inhaler therapy; also supportive care 7. GI and DVT prophylaxis
--- NOTE | 2020-12-01 06:26 | P.DS ---
Discharge Date: 11/27/20 Disposition: ROUTINE DISCHARGE Discharge Condition: GOOD Reason for Admission: SOB - Problems (1) Pneumonia due to COVID-19 virus Status: Acute (2) Hypoxemia Status: Acute (3) Depression Status: Acute Brief History of Present Illness: Patient is an 85-year-old female with a past medical history significant for osteoarthritis who presents with complaint of shortness of breath that has become worse in the last couple of days. Patient reported that she was tested + for COVID-19 infection 4 days ago . Patient reports associated signs and symptoms of cough, diarrhea weakness and fatigue. Patient denies any other signs or symptoms. Symptoms are aggravated or relieved by nothing. Jose Rauliy noted that patient O2 sat was in the 80s per patient report hence family decided to present to the hospital due to worsening symptoms. Hospital Course: Patient has done well during hospital stay. She has clinical symptoms are improving. Patient is clinically doing well. At this time, patient is stable for discharge home. Vital Signs/Physical Exam: Temp Pulse Resp BP Pulse Ox 98.4 F 88 20 99/65 95 11/27/20 16:00 11/27/20 16:00 11/27/20 16:00 11/27/20 16:00 11/27/20 16:00 General: Alert, In no apparent distress, Oriented x3 Laboratory Data at Discharge: WBC 6.80 K/uL (4.3-10.9) 11/27/20 05:41 Hgb 13.1 g/dL (12.0-15.0) 11/27/20 05:41 Hct 40.0 % (36.0-45.0) 11/27/20 05:41 Plt Count 225 K/uL (152-406) 11/27/20 05:41 PT 12.4 SECONDS (9.5-12.5) 11/24/20 14:00 INR 1.08 11/24/20 14:00 APTT 23.9 SECONDS (24.3-36.9) L 11/24/20 14:00 Sodium 139 mmol/L (136-145) 11/27/20 05:44 Potassium 4.3 mmol/L (3.5-5.1) 11/27/20 05:44 BUN 26 mg/dL (7-18) H 11/27/20 05:44 Creatinine 0.69 mg/dL (0.55-1.3) 11/27/20 05:44 Glucose 146 mg/dL (74-106) H 11/27/20 05:44 Phosphorus 3.0 mg/dL (2.5-4.9) 11/26/20 06:55 Magnesium 2.3 mg/dL (1.8-2.4) 11/26/20 06:55 Total Bilirubin 0.4 mg/dL (0.2-1.0) 11/27/20 05:44 AST 22 U/L (15-37) 11/27/20 05:44 ALT 29 U/L (12-78) 11/27/20 05:44 Alkaline Phosphatase 52 U/L (45-117) 11/27/20 05:44 Triglycerides 137 mg/dL (<150) 11/25/20 02:00 Cholesterol 184 mg/dL (<200) 11/25/20 02:00 HDL Cholesterol 58 mg/dL (40-60) 11/25/20 02:00 Cholesterol/HDL Ratio 3.17 11/25/20 02:00 Home Medications: Albuterol Inhaler [Ventolin Inhaler*] 2 puff IH Q6H PRN #1 hfa.aer.ad 11/27/20 Ascorbic Acid [Vitamin C*] 500 mg PO QID #120 tablet 11/27/20 Benzonatate [Tessalon Perle] 200 mg PO TID #60 cap 11/27/20 Cholecalciferol (Vitamin D3) [Vitamin D 5,000 IU Cap*] 5,000 unit PO DAILY #60 cap 11/27/20 Famotidine [Pepcid*] 20 mg PO DAILY #60 tab 11/27/20 Guaifen W/Codeine Syrup [ROBITUSSIN A-C Syrup*] 10 ml PO BID PRN #100 ml 11/27/20 Melatonin 10 mg PO BEDTIME #14 tablet 11/27/20 Thiamine HCl [Vitamin B-1*] 100 mg PO DAILY #30 tablet 11/27/20 Zinc Sulfate [Zinc Sulfate*] 220 mg PO DAILY #30 cap 11/27/20 predniSONE [Deltasone] 20 mg PO BID #20 tab 11/27/20 traMADol HCL [Ultram*] 50 mg PO Q6H PRN #30 tab 11/27/20 New Medications: Melatonin 10 mg PO BEDTIME #14 tablet Famotidine [Pepcid*] 20 mg PO DAILY #60 tab predniSONE [Deltasone] 20 mg PO BID #20 tab Guaifen W/Codeine Syrup [ROBITUSSIN A-C Syrup*] 10 ml PO BID PRN #100 ml PRN Reason: Cough Benzonatate [Tessalon Perle] 200 mg PO TID #60 cap traMADol HCL [Ultram*] 50 mg PO Q6H PRN #30 tab PRN Reason: Pain Scale 8-10 (Severe) Albuterol Inhaler [Ventolin Inhaler*] 2 puff IH Q6H PRN #1 hfa.aer.ad PRN Reason: Shortness Of Breath Thiamine HCl [Vitamin B-1*] 100 mg PO DAILY #30 tablet Ascorbic Acid [Vitamin C*] 500 mg PO QID #120 tablet Cholecalciferol (Vitamin D3) [Vitamin D 5,000 IU Cap*] 5,000 unit PO DAILY #60 cap Zinc Sulfate [Zinc Sulfate*] 220 mg PO DAILY #30 cap Physician Discharge Instructions: OK TO DC IV AND DC HOME with home oxygen FOLLOW-UP WITH PRIMARY CARE PROVIDER IN 1-2 WEEKS Return to the ER if symptoms worsen CALL or TEXT DR. ADAM AT [phone] IF ANY QUESTIONS REGARDING HOSPITAL STAY. PLEASE CALL THE FLOOR AT [phone] IF ANY MEDICATION OR NURSING QUESTIONS. Diet: AHA Activity: Fall precautions Followup: NONE,NONE [Primary Care Provider] - Time spent managing pt's care (in minutes): 35
== END 2020-11-27 18:18 | disposition home or self-care (01) | DRG 177 ==
LOC: ER 13:17 → ERHOLD 16:57 → 4TH 11-25 20:39
PROVIDERS: ADMIT Hospitalist; ATTEND Hospitalist
DX: U07.1 COVID-19 (principal); J12.82 Pneumonia due to coronavirus disease 2019; J96.01 Acute respiratory failure with hypoxia; M19.90 Unspecified osteoarthritis, unspecified site; N18.2 Chronic kidney disease, stage 2 (mild); F32.9 Major depressive disorder, single episode, unspecified
CPT/HCPCS: 36415; 71045; 71275; 80048; 80053; 80061; 80076; 81003; 81015; 82728; 82947; 83605; 83735; 83880; 84100; 84145; 84439; 84443; 84484; 85025; 85379; 85610; 85730; 86140; 87040; 87086; 87088; 93005; 94010; 96360; 96374; 96375; 99285; J0696; J1100; J1644; J2405; J2920; J2930; J7040; J7050; Q9967; U0003